=== PATIENT | female | born 1975 | race Caucasian/White ===

== ENCOUNTER 2023-01-16 10:32 | Day surgery (SDC) | payer MEDICAID ==
[2023-01-16] VITALS (10 sets, daily range): BP systolic 104–140; BP diastolic 60–84; PULSE 70–95; RESP 16; TEMP 98.6; O2SAT 91–95
[~2023-01-16] VITALS: Ht 162.6 cm; Wt 139.4 kg
[2023-01-16] MEDS ORDERED: diphenhydrAMINE 25mg capsule PO PRN (10:50)
[2023-01-16] MEDS ORDERED: normal saline 1,000 ML IV SCH (10:50)
[2023-01-16] MEDS ORDERED: LEVO137T2 PO (11:08)
[2023-01-16] MEDS ORDERED: PRE5T PO (11:08)
[2023-01-16] MEDS ORDERED: METH2.5T55 PO (11:08)
[2023-01-16] MEDS ORDERED: ALBU10.7 INH (11:08)
[2023-01-16] MEDS ORDERED: FOLI1TAB27 PO (11:08)
[2023-01-16] MEDS ORDERED: BACL10TA2 PO (11:08)
[2023-01-16] MEDS ORDERED: NITR0.4T51 SL (11:09)
[2023-01-16 11:26] LABS: BASOPHILS % (AUTO) 0.6 % (0-1); EOSINOPHILS # (AUTO) 0.1 X10'3 (0-0.9); EOSINOPHILS % (AUTO) 1.8 % (0-6); HEMOGLOBIN 14.6 g/dl (12.0-16.0); LYMPHOCYTES # (AUTO) 1.6 X10'3 (1.1-4.8); LYMPHOCYTES % (AUTO) 20.6 % (21-51); MEAN CORPUSCULAR HEMOGLOBIN 32.5 PG (27.0-31.0); MEAN CORPUSCULAR HGB CONC 32.5 g/dL (33.0-36.5); MEAN CORPUSCULAR VOLUME 99.8 FL (78-98); MEAN PLATELET VOLUME 7.3 FL (7.4-10.4); MONOCYTES # (AUTO) 0.8 X10'3 (0-0.9); MONOCYTES % (AUTO) 9.6 % (2-12); NEUTROPHILS # (AUTO) 5.4 X10'3 (1.8-7.7); NEUTROPHILS % (AUTO) 67.4 % (42-75); PLATELET COUNT 285 X10'3 (140-440); RED BLOOD COUNT 4.51 X10'6 (4.20-5.60); RED CELL DISTRIBUTION WIDTH 16.9 % (11.5-14.5)
[2023-01-16 11:48] LABS: ALBUMIN 3.2 G/DL (3.4-5.0); ANION GAP 8 (8-16); BLOOD UREA NITROGEN 14 MG/DL (7-18); BUN/CREATININE RATIO 21.9 (10.0-20.0); CALCIUM 8.4 MG/DL (8.5-10.1); CHLORIDE 103 MMOL/L (99-107); CREATININE 0.64 MG/DL (0.40-0.90); GLUCOSE 96 MG/DL (70-104); MAGNESIUM 1.8 MG/DL (1.5-2.4); POTASSIUM 3.6 MMOL/L (3.5-5.1); SODIUM 137 MMOL/L (135-145); TOTAL CARBON DIOXIDE 25.9 MMOL/L (24-32); eCRCL 95 ML/MIN; eGFR > 90 ML/MIN
[2023-01-16 12:03] LABS: INR 1.1 INR; PROTHROMBIN TIME 11.8 SECONDS (9.0-12.0)
[2023-01-16] MEDS ORDERED: midazolam 1 mg/ML 2ml injection ONE ×2 (13:47→14:36)
[2023-01-16] MEDS ORDERED: fentaNYL/PF 50MCG/1 ML 2ML syringe ONE (13:47)
[2023-01-16] MEDS ORDERED: LIDOcaine 1% (10mg/ml) 2ml vial ONE (13:47)
[2023-01-16] MEDS ORDERED: iohexol 350MG/ML 100ml bottle IV ONE (13:47)
[2023-01-16] MEDS ORDERED: heparin 1,000unit/ml 10ml vial 10 ML ONE (13:47)
[2023-01-16] MEDS ORDERED: iohexol 350 MG/ML 50ML vial IV ONE (13:47)
[2023-01-16] MEDS ORDERED: nitroGLYCERIN 500mcg/5mL D5W 5 ML IV ONE (13:53)
[2023-01-16] MEDS ORDERED: verapamil 2.5 mg/ml inj IV ONE (13:53)
[2023-01-16] MEDS ORDERED: HYDROcodone/acetaminophen 5mg/325mg tablet PO PRN (15:50)
[2023-01-16] MEDS ORDERED: proCHLORperazine 10 MG/2 ml inj IV PRN (15:50)
[2023-01-16] MEDS ORDERED: normal saline 1000ml 1,000 ML IV SCH (15:50)
[2023-01-16] MEDS ORDERED: HYDROcodone/acetaminophen 10/325mg tab PO PRN (15:50)
[2023-01-16] MEDS ORDERED: ondansetron/PF 4mg/2ml inj IV PRN (15:50)
== END 2023-01-16 18:27 | disposition home or self-care (01) ==
LOC: SSTAY O 10:32
PROVIDERS: ATTEND Internal Medicine Cardiovascular Disease
DX: R94.39 Abnormal result of other cardiovascular function study (principal); M06.9 Rheumatoid arthritis, unspecified; E03.9 Hypothyroidism, unspecified; E66.3 Overweight; Z68.42 Body mass index [BMI] 45.0-49.9, adult; Z79.899 Other long term (current) drug therapy; Z98.890 Other specified postprocedural states
CPT/HCPCS: 36415; 80048; 83735; 85025; 85610; 93005; 93458; 99152; 99153; J1644; J2250; J3010; J3490; J7030; Q0163; Q9967; A6258; A6402; C1894